=== PATIENT | female | born 1985 ===

== ENCOUNTER → 2024-05-21 06:28 | Day surgery (SDC) | payer BC, SELFPAY ==
[2024-05-21 12:02] LABS: COVID-19 Antigen Negative (Negative)
== END ==
LOC: GI 06:28
PROVIDERS: ATTENDING PHYSICIAN Internal Medicine Gastroenterology
DX: D12.2 Benign neoplasm of ascending colon (principal); D12.5 Benign neoplasm of sigmoid colon; K64.8 Other hemorrhoids; Z80.0 Family history of malignant neoplasm of digestive organs
CPT/HCPCS: 45385; 45381; 88305; 87811